=== PATIENT | female | born 1975 | race Caucasian/White ===

== ENCOUNTER → 2018-01-14 16:35 | Outpatient (REF) | payer OTHER, MEDICAID, SELFPAY | LOC: LAB 16:35 | PROVIDERS: Family Provider Family Medicine; PCP Family Medicine; Visit Provider Family Medicine | DX: R10.2 Pelvic and perineal pain (principal); N89.8 Other specified noninflammatory disorders of vagina | CPT/HCPCS: 87070; 87077; 87205 ==

== ENCOUNTER → 2018-01-29 12:39 | Outpatient (CLI) | payer OTHER, MEDICAID, SELFPAY ==
--- NOTE | 2018-01-29 | DI.US.S_ITS ---
PROCEDURE: US PELVIC COMPLETE INDICATIONS: PELVIC PAIN TECHNIQUE: Real-time scanning was performed of the pelvic organs, with image documentation. Additional endovaginal scanning was necessary due to incomplete visualization of the adnexal and endometrial structures by transabdominal scanning. COMPARISON: None. FINDINGS: Transabdominal scanning: Limited scanning through the kidneys shows no hydronephrosis. No pathologic free abdominal or pelvic fluid. Endovaginal scanning: Uterus: Uterus is normal in size at 7.5 x 3.3 x 4.3 cm. The endometrium measures 3 mm in combined thickness. There is an IUD in place. Ovaries: Right ovary measures 2.9 x 1.8 x 2.0 CM. The left ovary measures 2.3 x 1.5 x 3.3 CM. There is a 1.3 cm simple left ovarian cyst. IMPRESSION: Normal pelvic ultrasound. IUD in the expected location. Dictated by: Keith Flood M.D. on 01/29/2018 at 15:52 Approved by: Keith Flood M.D. on 01/29/2018 at 15:54
== END ==
PROVIDERS: PCP Family Medicine; Visit Provider Family Medicine
DX: R10.2 Pelvic and perineal pain (principal); Z30.431 Encounter for routine checking of intrauterine contraceptive device
CPT/HCPCS: 76830; 76856

== ENCOUNTER → 2019-02-13 13:14 | Outpatient (CLI) | payer OTHER, MEDICAID, SELFPAY ==
--- NOTE | 2019-02-13 | DI.MG.S_ITS ---
BILATERAL DIGITAL SCREENING MAMMOGRAM 3D/2D WITH CAD: 02/13/2019 CLINICAL: Baseline exam. Routine screening. Family history of breast cancer. No prior exams were available for comparison. The tissue of both breasts is heterogeneously dense. This may lower the sensitivity of mammography. Current study was also evaluated with a Computer Aided Detection (CAD) system. No significant masses, calcifications, or other findings are seen in either breast. IMPRESSION: NEGATIVE There is no mammographic evidence of malignancy. A 1 year screening mammogram is recommended. This exam was interpreted at Station ID: [id number]. NOTE: For mammograms, a report in lay terms will be sent to the patient. Approximately 15% of breast malignancies will not be visualized mammographically. In the management of a palpable breast mass, a negative mammogram must not discourage biopsy of a clinically suspicious lesion. Electronically Signed By: Myriam benitez/luis carlos:02/13/2019 14:02:12 letter sent: Normal Exam ACR BI-RADS Category 1: Negative 3341F
== END ==
PROVIDERS: PCP Family Medicine; Visit Provider Family Medicine
DX: Z12.31 Encounter for screening mammogram for malignant neoplasm of breast (principal); Z80.3 Family history of malignant neoplasm of breast
CPT/HCPCS: 77063; 77067

== ENCOUNTER → 2020-04-25 13:37 | Outpatient (CLI) | payer OTHER, MEDICAID, SELFPAY ==
[2020-04-25 14:58] LABS: COVID19 -Nasal RAPID Negative (Negative)
== END ==
PROVIDERS: PCP Family Medicine; Visit Provider Physician Assistant
DX: Z11.59 Encounter for screening for other viral diseases (principal)
CPT/HCPCS: 87635

== ENCOUNTER → 2020-08-08 09:41 | Outpatient (CLI) | payer OTHER, MEDICAID, SELFPAY ==
[2020-08-09 18:51] LABS: ANA Screen, IFA Negative (.)
[2020-08-11 13:13] LABS: Anti Mitochondrial ABY IGG <20.0 Units (0.0-20.0)
== END ==
PROVIDERS: PCP Family Medicine; Referring Provider Family Medicine; Visit Provider Family Medicine
DX: R53.83 Other fatigue (principal); M25.50 Pain in unspecified joint
CPT/HCPCS: 36415; 83516; 86038

== ENCOUNTER → 2020-10-26 17:02 | Outpatient (CLI) | payer OTHER, MEDICAID, SELFPAY ==
[2020-10-26 19:04] LABS: Add Manual Diff / Slide Review NO; Basophils Absolute Auto 0 /uL (0-100); Basophils Percent Auto 0.4 % (0-2); Eosinophils Absolute Auto 0 /uL (0-450); Eosinophils Percent Auto 0.5 % (2-4); Hematocrit 41.6 % (36-46); Hemoglobin 13.9 g/dL (12.0-16.0); Lymphocytes Absolute Auto 2200 /uL (1100-4500); Lymphocytes Percent Auto 33.6 % (25-40); Mean Corpuscular HGB Conc 33.6 % (30-36); Mean Corpuscular Hemoglobin 31.8 PG (26-34); Mean Corpuscular Volume 94.7 fL (80-100); Monocytes Absolute Auto 400 /uL (0-900); Monocytes Percent Auto 6.8 % (3-14); Neutrophils Absolute Auto 3800 /uL (1500-7000); Neutrophils Percent Auto 58.7 % (50-75); Platelet Count 243 X10^3/uL (150-400); Red Blood Cell Count 4.39 X10^6/uL (4.0-5.2); Red Cell Distribution Width 13.5 % (11.6-14.8); White Blood Cell Count 6.5 X10^3/uL (4.5-11.0)
[2020-10-26 20:18] LABS: Erythrocyte Sedimentation Rate 3 MM/HR (0-20)
[2020-10-26 22:17] LABS: Vitamin D 25 Hydroxy (D3) 34.2 ng/mL (30.0-100.0)
[2020-10-26 22:30] LABS: Thyroid Stimulating Hormone 3.65 uIU/mL (0.47-4.68)
[2020-10-27 04:29] LABS: Alanine Aminotransferase 20 IU/L (<35); Albumin 4.6 g/dL (3.5-5.0); Albumin Globulin Ratio 1.5 (1.0-2.8); Alkaline Phosphatase 52 U/L (38-126); Aspartate Aminotransferase 30 IU/L (14-36); Bilirubin Total 0.4 mg/dL (0.2-1.3); Blood Urea Nitrogen 13 mg/dL (7-17); C-Reactive Protein Quant < 0.5 mg/dL (<1.0); Calcium 9.9 mg/dL (8.4-10.2); Carbon Dioxide 27 mmol/L (22-32); Chloride 103 mmol/L (98-107); Cholesterol 208 mg/dL (140-199); Estimated Glomerular Filt Rate > 60.0 mL/min (>60); Globulin 3.1 g/dL (1.7-4.1); Glucose 92 mg/dL (70-100); HDL Cholesterol 78 mg/dL (40-60); HEMOLYSIS < 15 (0-50); LDL Cholesterol Calculated 116 mg/dL (<100); Potassium 3.7 mmol/L (3.4-5.1); Sodium 136 mmol/L (137-145); Total Protein 7.7 g/dL (6.3-8.2); Triglycerides 71 mg/dL (35-150)
[2020-10-27 04:30] LABS: Rheumatoid Factor < 8.6 IU/mL (<12.0)
[2020-10-27 05:34] LABS: Folate 13.8 ng/mL (2.76-20.0); Vitamin B12 293 pg/mL (239-931)
[2020-10-28 16:15] LABS: Hepatitis B Surface Antigen NEGATIVE s/c (NEGATIVE)
[2020-10-28 16:32] LABS: HIV 1 & 2 Ab/Ag 4th Gen Combo NEGATIVE (NEGATIVE); Hep C Virus Ab w/Reflex Quant NEGATIVE s/c (NEGATIVE)
[2020-10-30 23:36] LABS: CCP Antibodies IgG/IgA 3 units (0-19)
[2020-11-02 20:37] LABS: Treponema pallidum Antibodies Non Reactive (Non Reactive)
== END ==
PROVIDERS: PCP Family Medicine; Referring Provider Family Medicine; Visit Provider Family Medicine
DX: Z00.00 Encounter for general adult medical examination without abnormal findings (principal); R53.83 Other fatigue; M25.50 Pain in unspecified joint; M54.2 Cervicalgia; M54.9 Dorsalgia, unspecified; G47.00 Insomnia, unspecified; R87.810 Cervical high risk human papillomavirus (HPV) DNA test positive; L71.0 Perioral dermatitis; N92.1 Excessive and frequent menstruation with irregular cycle; F41.1 Generalized anxiety disorder
CPT/HCPCS: 36415; 80053; 80061; 82306; 82607; 82746; 84443; 85025; 85651; 86140; 86200; 86430; 86780; 86803; 87340; 87389

== ENCOUNTER → 2021-04-19 17:45 | Outpatient (CLI) | payer OTHER, MEDICAID, SELFPAY ==
--- NOTE | 2021-04-19 | DI.MG.S_ITS ---
BILATERAL DIGITAL SCREENING MAMMOGRAM 3D/2D WITH CAD: 04/19/2021 CLINICAL: Routine screening. Family history of breast cancer. Comparison is made to exam dated: 02/13/2019 [facility]. There are scattered fibroglandular elements in both breasts. Current study was also evaluated with a Computer Aided Detection (CAD) system. No significant masses, calcifications, or other findings are seen in either breast. There has been no significant interval change. IMPRESSION: NEGATIVE There is no mammographic evidence of malignancy. A 1 year screening mammogram is recommended. This exam was interpreted at Station ID: [id number]. NOTE: For mammograms, a report in lay terms will be sent to the patient. Approximately 15% of breast malignancies will not be visualized mammographically. In the management of a palpable breast mass, a negative mammogram must not discourage biopsy of a clinically suspicious lesion. Electronically Signed By: Rui thomas/luis carlos:04/20/2021 08:22:36 letter sent: Normal Exam ACR BI-RADS Category 1: Negative 3341F
== END ==
PROVIDERS: PCP Family Medicine; Referring Provider Family Medicine; Visit Provider Family Medicine
DX: Z12.31 Encounter for screening mammogram for malignant neoplasm of breast (principal); Z80.3 Family history of malignant neoplasm of breast
CPT/HCPCS: 77063; 77067

== ENCOUNTER → 2023-02-09 09:57 | Outpatient (CLI) | payer OTHER, MEDICAID, SELFPAY ==
--- NOTE | 2023-02-09 09:58 | DI.MG.S_ITS ---
BILATERAL DIGITAL SCREENING MAMMOGRAM 3D/2D WITH CAD: 02/09/2023 CLINICAL: Routine screening. Family history of breast cancer. Comparison is made to exams dated: 02/13/2019 mammogram and 04/19/2021 mammogram - [facility]. There are scattered areas of fibroglandular density in both breasts (category b / 25%-50% glandular tissue). Current study was also evaluated with a Computer Aided Detection (CAD) system. No significant masses, calcifications, or other findings are seen in either breast. There has been no significant interval change. IMPRESSION: NEGATIVE There is no mammographic evidence of malignancy. A 1 year screening mammogram is recommended. Based on Tyrer-Cuzick model (a risk assessment model), the patient's lifetime risk is 25.6% and her 10 year risk is 5.0%. If a patient has an elevated risk, a more comprehensive evaluation should be considered and/or a referral to a genetic counselor. The [employer], [employer], and NCCN Guidelines advise the consideration of Breast MRI as an adjunct to screening mammography in patients whose Lifetime risk to develop breast cancer is 20% or higher. This exam was interpreted at Station ID: [id number]. NOTE: For mammograms, a report in lay terms will be sent to the patient. Approximately 15% of breast malignancies will not be visualized mammographically. In the management of a palpable breast mass, a negative mammogram must not discourage biopsy of a clinically suspicious lesion. Electronically Signed By: Rui thomas/luis carlos:02/11/2023 07:01:56 letter sent: Normal Exam ACR BI-RADS Category 1: Negative 3341F
== END ==
PROVIDERS: PCP Family Medicine; Referring Provider Family Medicine; Visit Provider Family Medicine
DX: Z12.31 Encounter for screening mammogram for malignant neoplasm of breast (principal); Z80.3 Family history of malignant neoplasm of breast
CPT/HCPCS: 77063; 77067

== ENCOUNTER 2023-09-17 07:11 | Day surgery (SDC) | payer OTHER, MEDICAID, SELFPAY ==
--- NOTE | 2023-09-17 | PATH_ITS ---
[facility] Accession Number: [id number] No. of containers..01 Tissue . 01 Material submitted: . rectum - RECTAL POLYP . 01 Diagnosis: RECTUM, POLYP: Tubulovillous adenoma. No evidence of malignancy or high-grade dysplasia. [facility] 09/25/2023 0135 Local . 01 Electronically signed: . Loretta López MD, Pathologist NPI- [id number] . 01 Gross description: . RECTAL POLYP: Received in formalin is 1 fragment(s) of canseco, soft tissue measuring 0.6 x 0.6 x 0.5 cm submitted entirely in 1 cassette(s) /JERMAINE 09/19/2023 1927 Local . 01 Pathologist provided ICD-10: D12.8 . 01 CPT . 096607 Specimen Comment: A courtesy copy of this report has been sent to [phone] Performed at: 01 [facility] [address] [place] [id number] MD Husam Curran MD Phone: [phone]
[2023-09-17] MEDS: LACTATED RINGERS 1,000 ML 100 ML IV (07:45)
[2023-09-17 07:47] VITALS: BP 120/66; PULSE 66; RESP 16; TEMP 36.4; O2SAT 100
--- NOTE | 2023-09-17 07:53 | PM.HP.1 ---
History of Present Illness History of Present Illness Date Patient Seen: 09/17/23 Time Patient Seen: 07:53 Chief complaint: Screening Colonoscopy Narrative: 47-year-old woman here for 1st time screening colonoscopy. Family history significant for father who develop cancer colon cancer in mid 50s. No abdominal concerns today. Past medical history is significant for malignant hyperthermia. [facility] Medical History (Updated 09/17/23 @ 07:46 by Maribeth Kramer RN) Malignant hyperthermia Open wound of heart with complication Surgical History (Updated 09/17/23 @ 07:24 by Maribeth Kramer RN) History of open heart surgery Status post open mitral valve commissurotomy History of open heart surgery Meds Home Medications and Allergies Home Medications Medication Instructions Recorded Confirmed Type hydrocodone 5 mg-acetaminophen 325 1 tab PO QDAY PRN #20 tabs 11/30/16 Rx mg tablet ([place]) clonazepam 1 mg tablet (Klonopin) 1 mg PO QDAYP PRN #30 tabs 12/13/16 09/17/23 Rx acyclovir 400 mg tablet 400 mg PO TID PRN #27 tabs 08/23/17 09/17/23 Rx Allergies Allergy/AdvReac Type Severity Reaction Status Date / Time amide anesthetics Allergy Severe malignant Uncoded 09/17/23 07:19 hyperthermia ANESTHETICS,GENERAL Allergy Mild Uncoded 09/17/23 07:19 ATROPINE Allergy Unknown Uncoded 09/17/23 07:19 DESFLURANE Allergy Unknown Uncoded 09/17/23 07:19 ENFLURANE Allergy Unknown Uncoded 09/17/23 07:19 From DRAMAMINE PO CTB 50 MG Allergy Unknown Uncoded 09/17/23 07:19 HALOTHANE Allergy Unknown Uncoded 09/17/23 07:19 ISOFLURANE Allergy Unknown Uncoded 09/17/23 07:19 METHOXYFLURANE Allergy Unknown Uncoded 09/17/23 07:19 SCOPOLAMINE Allergy Unknown Uncoded 09/17/23 07:19 SEVOFLURANE Allergy Unknown Uncoded 09/17/23 07:19 SUCCINYLCHOLINE Allergy Unknown Uncoded 09/17/23 07:19 Exam Narrative Exam Narrative: General adult woman alert oriented no acute distress Chest nonlabored respiration Extremities warm well perfused Assessment & Plan Assessment & Plan narrative: The patient requires colorectal screening and colonoscopy is recommended. Technical details were discussed. Risks, benefits, alternatives explained. Risks including but not limited to myocardial infarction, aspiration, bleeding, pain, missed lesion, incomplete examination, need for further radiographic studies, intestinal injury, and need for major abdominal surgery were discussed. All questions were answered to their satisfaction, and they are in agreement with this plan.
--- NOTE | 2023-09-17 08:03 | P.OP.COLON_ITS ---
Operative Date/Time/Diagnoses Date of procedure: 09/17/23 Time of procedure: 08:03 Pre-op diagnosis: Colorectal screening Family history colon cancer Procedure & Clinicians Study performed: Screening colonoscopy Same procedure as scheduled: Yes Indications: Colorectal screening Family history of colon cancer Surgeon: Donovan Moran Procedure Notes Procedure in detail: The history and physical was performed/updated and the patient is ASA class is 2. The procedure was discussed in detail with the patient. Potential risks complications including infection, bleeding, missed diagnosis, perforation, need for surgery, and were explained. Their questions were answered and informed consent was obtained. Patient was brought to the procedure room and placed standard monitoring equipment. The patient's vital signs were monitored continuously throughout the entire procedure. Prior to starting time-out was performed. The patient was placed in the left lateral recumbent position. Procedural sedation was administered by anesthesia. Examination began with a thorough inspection of the perianal area there was no evidence of fissures, fistulae, external hemorrhoids or cutaneous malignancy. The colonoscopy scope was then placed into the anal canal and was advanced to the cecum, which was identified by the ileocecal valve, the appendiceal orifice and the confluence of the taenia. The scope was then slowly withdrawn examining colon thoroughly in all directions, irrigating it of any residual stool. The scope was retroflexed within the rectum The patient tolerated the procedure well. They will be discharged once criteria are met. The prep was of good/excellent quality. The withdrawl time was 7 minutes. FINDINGS * Rectum-1 cm pedunculated polyp removed with cold snare Specimen(s): other (Rectal polyp) Impression: Colonic polyp x1 Post-procedure Recommendations: Colonoscopy in 5 years Disposition: same day surgery
[2023-09-17 08:38] VITALS: BP 141/101; PULSE 64; RESP 16; TEMP 36.3; O2SAT 100
[2023-09-17 08:41] VITALS: BP 78/51; PULSE 65; RESP 14; O2SAT 100
[2023-09-17 08:44] VITALS: BP 94/62; PULSE 67; RESP 24; O2SAT 99
[2023-09-17 08:48] VITALS: BP 105/64; PULSE 63; RESP 13; TEMP 36.3; O2SAT 100
[2023-09-17 08:52] VITALS: BP 101/59; PULSE 57; RESP 15; O2SAT 100
== END 2023-09-17 09:08 | disposition home or self-care (01) ==
PROVIDERS: PCP Family Medicine; Referring Provider Surgery; Visit Provider Surgery
PROC: 0DJD8ZZ Inspection of Lower Intestinal Tract, Via Natural or Artificial Opening Endoscopic (ICD-10-PCS; CPT 45378; principal; 2023-09-17 08:00)
DX: Z12.11 Encounter for screening for malignant neoplasm of colon (principal); Z80.0 Family history of malignant neoplasm of digestive organs; D12.8 Benign neoplasm of rectum
CPT/HCPCS: 45385; J2704

== ENCOUNTER → 2024-02-29 09:50 | Outpatient (CLI) | payer OTHER, MEDICAID, SELFPAY ==
--- NOTE | 2024-02-29 | DI.MG.S_ITS ---
BILATERAL DIGITAL SCREENING MAMMOGRAM 3D/2D WITH CAD: 02/29/2024 CLINICAL: Routine screening. Family history of breast cancer. Comparison is made to exams dated: 02/09/2023 mammogram, 04/19/2021 mammogram, and 02/13/2019 mammogram - [facility]. There are scattered areas of fibroglandular density (category b / 25%-50% glandular tissue). Current study was also evaluated with a Computer Aided Detection (CAD) system. No significant masses, calcifications, or other findings are seen in either breast. There has been no significant interval change. IMPRESSION: NEGATIVE There is no mammographic evidence of malignancy. A 1 year screening mammogram is recommended. Based on Tyrer-Cuzick model (a risk assessment model), the patient's lifetime risk is 25.7% and her 10 year risk is 5.3%. If a patient has an elevated risk, a more comprehensive evaluation should be considered and/or a referral to a genetic counselor. The [employer] [employer], [employer], and NCCN Guidelines advise the consideration of Breast MRI as an adjunct to screening mammography in patients whose Lifetime risk to develop breast cancer is 20% or higher. This exam was interpreted at Station ID: [id number]. NOTE: For mammograms, a report in lay terms will be sent to the patient. Approximately 15% of breast malignancies will not be visualized mammographically. In the management of a palpable breast mass, a negative mammogram must not discourage biopsy of a clinically suspicious lesion. Electronically Signed By: Tran Nixon M.D., Ph.D. pilar/luis carlos:03/02/2024 13:26:44 letter sent: Normal Exam ACR BI-RADS Category 1: Negative
== END ==
PROVIDERS: PCP Family Medicine; Referring Provider Family Medicine; Visit Provider Family Medicine
DX: Z12.31 Encounter for screening mammogram for malignant neoplasm of breast (principal); Z80.3 Family history of malignant neoplasm of breast
CPT/HCPCS: 77063; 77067

== ENCOUNTER → 2025-03-08 15:58 | Outpatient (CLI) | payer OTHER, SELFPAY ==
--- NOTE | 2025-03-08 15:59 | DI.MG.S_ITS ---
MM screening mammo BI: 03/08/2025. BI-RADS: 1 CLINICAL: 49-year old female for bilateral screening mammogram. Tyrer-Cuzick lifetime risk of 31.4%. Current reported family history of breast cancer: maternal grandmother, paternal grandmother, mother, sister, maternal aunt, second maternal aunt and third maternal aunt. PRIOR EXAMS 02/29/2024, 02/09/2023, 04/19/2021, 02/13/2019. MAMMOGRAPHY TECHNIQUE: 2D and 3D (tomosynthesis) digital mammographic views obtained, with additional images as needed for full coverage. Current study was also evaluated with a Computer Aided Detection (CAD) system. DENSITY B. There are scattered areas of fibroglandular density. MAMMOGRAPHY FINDINGS Bilateral: No suspicious mass, asymmetry, microcalcification, or other abnormality seen. IMPRESSION: * No evidence of malignancy. RECOMMENDATIONS Bilateral * According to the Tyrer-Cuzick Risk Assessment Model, based on the information provided your patient has a greater than 20% lifetime risk for developing breast cancer. Consider supplemental screening with breast MRI and participation in a high risk screening program. * Annual screening mammography. OVERALL ASSESSMENT CATEGORY BI-RADS-1: Negative. The [employer] recommends annual screening mammography beginning at age 40 for women with average risk of breast cancer. ELECTRONICALLY SIGNED: Rui Hedrick M.D. on 03/11/2025 at 07:10:30 AM PT Interpreting Station ID: [id number]
== END ==
LOC: MAMMO 15:59
PROVIDERS: PCP Family Medicine; Referring Provider Family Medicine; Visit Provider Family Medicine
DX: Z12.31 Encounter for screening mammogram for malignant neoplasm of breast (principal); Z80.3 Family history of malignant neoplasm of breast
CPT/HCPCS: 77063; 77067